=== PATIENT | male | born 1975 | race Caucasian/White ===

== ENCOUNTER 2019-12-28 11:33 | Emergency (ER) | payer OTHER, SELFPAY ==
--- NOTE | 2019-12-28 | MR_ITS ---
WS: [id number] MRI CERVICAL SPINE NONCONTRAST TECHNIQUE: Sagittal T1, T2 and STIR imaging. Axial T2, gradient, and fiesta imaging. CLINICAL INFORMATION: C1 FX COMPARISON: CT December 28, 2019 FINDINGS: Straightening of the normal cervical lordosis. Dens is normal in appearance. Normal C1-2 articulation . No evidence of cord contusion or epidural hematoma. No significant edema along the C1 ring fracture s better seen on the concurrent CT. Diffuse dorsal soft tissue and interspinous edema extending from the skull base into the cervical and upper thoracic spine more prominent at C3-T3 consistent with diffuse ligamentous injury. Edema withi n the right neck soft tissues deep to the sternocleidomastoid. C2-C3: Normal. C3-C4: Normal. C4-C5: Normal. C5-C6: Tiny shallow central protrusion. Slight effacement of ventral thecal sac. Mild left and no sig nificant right foraminal narrowing. Mild facet arthropathy. C6-C7: Normal. C7-T1: Mild disc bulging eccentric to the left with mild left and no significant right foraminal narr owing. Spinal canal is patent. Notified Bonifacio Ken DO at 12/28/2019 3:07 PM. MR/MR cervical spin wo con* [id number] IMPRESSION: 1. Diffuse dorsal subcutaneous and interspinous edema extending from the dorsa l skull base to the cervical spine and into the upper thoracic spine consistent with diffuse ligamentous injury. 2. No evidence of cord contusion or epidural hematoma. 3. Shallow central protrusion C5-C6 with slight effacement of ventral thecal s ac and mild left foraminal narrowing. 4. No significant edema at the C1-2 articulation or C1 ring. Recommend interva l follow-up to assess for evidence of healing at the suspected C1 ring fracture s seen on CT. 5. Edema within the right neck deep to the sternocleidomastoid. 6. Mild chronic left C7-T1 foraminal narrowing.
[2019-12-28 11:38] VITALS: BP 132/88; PULSE 62; RESP 20; O2SAT 100; BMI 25.1
--- NOTE | 2019-12-28 11:42 | CT_ITS ---
WS: [id number] CT FACIAL BONES HISTORY: fall facial trauma TECHNIQUE: Images obtained from the supraorbital location through the mandible. Soft tissue and bone windows are reviewed. Coronal and sagittal reformats have also been submitted. DLP: 805.[address] scans at [facility] use at least one of these dose optimization techniques: automat ed exposure control; mA and/or kV adjustment per patient size (includes targeted exams where dose is matched to clinical indication); or iterative reconstruction. COMPARISON: None available. The RIGHT central and lateral maxillary incisors have been dislocated partially from the tooth socket . There is displacement anteriorly with a small amount of adjacent air filling the socket. There is d isruption between the tooth and the socket. No additional maxillary fracture. Nasal bones and zygomat ic arches are intact. Mandible appears intact also. Extensive soft tissue edema over the maxilla. Nasal spine is midline. No fracture. No air-fluid level s or blood within the sinus cavities. Visualized upper cervical spine is normal. CT/CT facial bones wo con* [id number] IMPRESSION: 1. Displacement of the RIGHT central and lateral maxillary incisors with destr uction of the tooth socket. Adjacent soft tissue edema and bleeding around the maxilla. 2. No additional facial bone fracture.
--- NOTE | 2019-12-28 11:42 | CT_ITS ---
WS: [id number] CT CERVICAL SPINE HISTORY: fall neck pain TECHNIQUE: Contiguous 2.5 mm axial imaging performed through the entire cervical spine. Sagittal and coronal reformats also performed. All CT scans at [facility] use at least one of these do se optimization techniques: automated exposure control; mA and/or kV adjustment per patient size (inc ludes targeted exams where dose is matched to clinical indication); or iterative reconstruction. DLP: 635.82 mGy.cm COMPARISON: None available. Craniocervical junction is normal. Nondisplaced lucencies through the posterior ring of C1. Lucencies are bilateral within the posterior arch of C1. The anterior ring is intact. The odontoid process is intact. Facet joints are normally aligned without widening. Additional small osseous densities involving the occipital condyles suspicious for avulsion fractures from the recent trauma impaction. More suspicious on the RIGHT than the LEFT. C2-C3: Normal. C3-C4: Shallow central disc protrusion. C4-C5: Shallow central disc protrusion. C5-C6: Small central disc protrusion. C6-C7: Normal. C7-T1: Normal. Soft tissues are normal. Lung apices are clear. Notified Bonifacio Ken DO at 12/28/2019 12:[address]/CT cervical spin wo con* [id number] IMPRESSION: 1. Nondisplaced bilateral lucencies in the posterior arch of C1 consistent wit h fractures. Lucencies do not appear to be normal variants. 2. Small osseous fragments along the posterior occipital condyles. Suspicious for avulsion fractures from the recent trauma. 3. No additional fracture. 4. Consider MRI evaluation cervical spine.
--- NOTE | 2019-12-28 11:42 | CT_ITS ---
WS: [id number] CT HEAD NONCONTRAST HISTORY: fall w/ LOC TECHNIQUE: Contiguous axial imaging performed through the brain in 2.5 mm imaging. Bone and soft tiss ue windows. Sagittal and coronal reformats reviewed. All CT scans at [facility] use at ast one of these dose optimization techniques: automated exposure control; mA and/or kV adjustment pe r patient size (includes targeted exams where dose is matched to clinical indication); or iterative r econstruction. DLP: 872.18 mGy.cm COMPARISON: None available. No acute intracranial hemorrhage, midline shift or mass effect. No atrophy or prior infarcts or herniation. No acute blood products in the ambient cistern or intrap eduncular cistern. Ventricles: Normal size with no hydrocephalus. Paranasal sinuses: As visualized are clear. Mastoid air cells: Well pneumatized. Calvarium and scalp: Skull is intact with no soft tissue edema or swelling. CT/CT head wo con* [id number] IMPRESSION: Negative head CT.
--- NOTE | 2019-12-28 11:43 | XR_ITS ---
WS: [id number] PORTABLE CHEST HISTORY: dyspnea/cough COMPARISON: 06/26/2014 Lungs are clear and well expanded. No pleural effusion or pneumothorax. Cardiac size: Normal. Mediastinum/Aorta: Normal mediastinum. No mediastinal widening. No osseous abnormality seen. XR/XR chest 1V portable [id number] IMPRESSION: Unremarkable portable chest.
[2019-12-28] MEDS: ondansetron 2 mg/ML SDV 2 mL 4 MG IVP (11:46)
[2019-12-28] MEDS: ketorolac 30 mg/mL INJ IVP (11:48)
--- NOTE | 2019-12-28 11:49 | W.ED.FALL ---
HPI - Fall General: Chief Complaint: Fall Stated Complaint: ABRASIONS TO FACE Time Seen by Provider: 12/28/19 11:36 History of Present Illness: HPI Narrative: 44-year-old male presents the emergency room after a fall from a horse he has some facial abrasions and forehead abrasions he did land on his face he has neck pain. He came by privately owned vehicle and did not have a c-collar on. His symptoms evaluated the patient we called for a c-collar and placed him in a c-collar he cannot recall everything that happens. He thinks he may have been possibly kicked in the head by the horse he denies any other injuries he was ambulatory after the fall. complaint: fall Onset (ago): minute(s) Fall from: other (Thrown from a horse) Fall witnessed: yes, by family Place fall occurred: home Loss of consciousness: Yes Prolonged down time: unclear Symptoms prior to fall: none Context: other (Thrown from a horse.) Location of injury: head, face and neck Associated symptoms-after fall: Reports confusion, lightheadedness and neck pain; Denies abdominal pain or hematuria Review of Systems Const: Reports: body aches; Denies: fever, chills, fatigue, malaise or night sweats ENMT: Reports: mouth pain, swelling of lips/tongue and dental pain Card: Reports: lightheadedness Resp: Reports: shortness of breath; Denies: productive cough, non-productive cough or wheezing GI: Denies: abdominal pain, nausea, vomiting, vomiting blood, difficulty swallowing, cramping or blood in stool : Denies: flank pain, difficulty urinating, painful urination, urinary frequency, urinary urgency, urinary incontinence or blood in urine Musc: Reports: neck pain; Denies: back pain, extremity pain, extremity swelling, joint pain or joint swelling Skin/Breast: Reports: other (Abrasions on the face swelling of the lips); Denies: rash, itching or redness Neuro: Reports: confusion PFSH ED PFSH: Social History Smoking and tobacco status: never smoked Physical Exam Const: GENERAL APPEARANCE: cooperative ORIENTATION/CONSCIOUSNESS: Yes awake, Yes oriented to person, Yes oriented to place and Yes oriented to time HENMT: COMMON NORMALS: normocephalic, hearing grossly normal bilaterally, external ears normal, EAC's normal, TM's normal bilaterally, moist oral mucous membranes and oropharynx normal HEAD & SCALP: normocephalic NOSE: external nose abnormal nasal abrasion and nasal swelling and other (Small amount of dried blood in the nares no active bleeding) EXTERNAL EAR: Yes external ears normal EXTERNAL AUDITORY CANAL: EAC's normal TYMPANIC MEMBRANE: TM's normal bilaterally MOUTH: lip abnormal (Abrasion of the upper lip with laceration on the inner aspect of the upper lip does not appear to be gaping there is no active bleeding there is no laceration across the vermilion border) TEETH & GINGIVA: Yes abnormal tooth and associated gingiva (Displaced right frontal incisors -minimal exam of these other than observation no attempted any manipulation since arrangements were being made for immediate referral to dentist after the emergency room.) Eye: COMMON NORMALS: PERRL, EOMs intact bilaterally, conjunctivae normal and no scleral icterus CONJUNCTIVA: Yes conjunctivae normal PUPIL: Yes PERRL Neck/C-Spine: COMMON NORMALS: full ROM, no lymphadenopathy, supple and no JVD Lymph: LYMPHATIC: no lymphadenopathy noted and no lymphedema noted Resp: COMMON NORMALS: normal respiratory effort, no retractions, no use of accessory muscles and clear to auscultation bilaterally AUSCULTATION: clear to auscultation bilaterally Cardio: COMMON NORMALS: no JVD, regular rate, regular rhythm and no murmurs RATE: regular rate RHYTHM: regular rhythm GI: COMMON NORMALS: soft to palpation and no hepatosplenomegaly AUSCULTATION: Yes normoactive bowel sounds PALPATION: Yes soft, No tender, No guarding and Yes no hepatosplenomegaly Extremity: COMMON NORMALS: normal to inspection, normal capillary refill, no clubbing, cyanosis or edema, no calf tenderness and no pedal edema Neuro: SENSORIUM/ORIENTATION: Yes oriented to person, Yes oriented to place and Yes oriented to time Skin: NARRATIVE SKIN EXAM: Abrasions on the forehead across the nose and upper lip no full-thickness lacerations of the skin, there is a laceration on the inner aspect of the upper lip but it is not requiring sutures Course Vital Signs: Vital signs: Vital Signs Temperature 98.2 F 12/28/19 16:07 Pulse Rate 68 12/28/19 16:07 Respiratory Rate 18 12/28/19 16:07 Blood Pressure 121/78 12/28/19 16:07 Pulse Oximetry 96 12/28/19 16:07 MDM - Fall MDM Narrative: Medical decision making narrative: CT of the head shows a hematoma CT the facial bones shows displaced right lateral incisors. No other facial bone fractures CT of the neck shows a nondisplaced C1 fracture. Discussed with patient as well as with Dr. Ott we opted to do an MRI here at our facility. Dr. Ott reviewed the MRI and recommended a [place] or SOMI neck braces. The [place] was available to so me was ordered by prescription. Per the patient's request I had conferred with his local dentist. We transmitted appropriate images from his CT of the facial bones to his dentist. He asked that we send him directly to his office after leaving the emergency room patient left with the disc in hand. Dentist will care for the displaced teeth and make arrangements for referral to oral maxillary facial surgery as is appropriate. Patient is to follow-up with Dr. Ott on the cervical spine fracture. He is to remain in the c-collar until he sees Dr. Ott. Pain medications given as well as muscle relaxers and Ativan to assist in sleep. Lab Data: Labs: Lab Results 12/28/19 12/28/19 12/28/19 Range/Units 11:48 11:48 13:09 WBC 11.5 H (4.0-10.0) 10^3/ uL RBC 5.20 (4.1-5.3) 10^6/u L Hgb 15.5 (11.7-16.6) g/dL Hct 47.4 (42.0-52.0) % MCV 91.2 (80-94) fL MCH 29.8 (28.0-34.0) pg MCHC 32.7 (30.0-36.0) g/dL RDW 13.1 (12.1-15.1) % Plt Count 355 (130-400) 10^3/c mm MPV 10.0 (7.4-10.4) fL Neut % (Auto) 65.4 % Lymph % (Auto) 23.3 % [place] % (Auto) 7.5 % Eos % (Auto) 2.5 % Baso % (Auto) 0.3 % Neut # (Auto) 7.5 (1.8-7.7) 10^3/u L Lymph # (Auto) 2.7 (0.8-4.8) 10^3/u L [place] # (Auto) 0.9 (0.2-0.9) 10^3/u L Eos # (Auto) 0.3 (0.0-0.8) 10^3/u L Baso # (Auto) 0.0 (0.0-0.1) 10^3/u L Nucleated RBC % (a uto) 0 % Nucleated RBCs # 0.0 /100WBC Sodium 140 (136-145) mmol/L Potassium 3.9 (3.5-5.1) mmol/L Chloride 100 (98-107) mmol/L Carbon Dioxide 26 (22-29) mmol/L Anion Gap 17.9 (5-19) BUN 22 H (6-20) mg/dL Creatinine 1.2 (0.7-1.2) mg/dL GFR Calculation 65.8 L (90-130) mL/min Glucose 156 H (65-115) mg/dL Calculated Osmolal ity 290 (285-295) mOsm/k g Calcium 10.2 (8.5-10.5) mg/dL Total Bilirubin 0.5 (0.15-1.2) mg/dL AST 38 (0-40) U/L ALT 40 (0-41) U/L Alkaline Phosphata se 99 (40-130) IU/L Total Protein 7.7 (6.6-8.7) g/dL Albumin 4.6 (3.5-5.2) g/dL Globulin 3.1 (1.3-4.6) g/dL Urine Color Yellow (Yellow) Urine Appearance Clear (CLEAR) Urine pH 5 (5-7) Ur Specific Gravit y 1.020 (1.005-1.030) Urine Protein Neg (Negative) Urine Glucose (UA) Norm (Normal) Urine Ketones Negative (Negative) Urine Blood Neg (Negative) Urine Nitrate Negative (Negative) Urine Bilirubin Neg (NEGATIVE) Urine Urobilinogen Norm (Negative) mg/dL Ur Leukocyte Merna ase Negative (Negative) Discharge Plan Discharge Patient Disposition: Home, Self-Care Clinical Impression: Concussion with loss of consciousness, Dental trauma Condition: Stable Prescriptions: New hydrocodone-acetaminophen 5-325 mg tablet 1 tab PO Q6H PRN (Reason: pain) Qty: 25 RF: 0 Zofran 4 mg tablet 4 mg PO Q6H PRN (Reason: nausea and vomiting) Qty: 20 RF: 0 cyclobenzaprine 10 mg tablet 5 - 10 mg PO TID PRN (Reason: muscle spasm) Qty: 30 RF: 0 Ativan 1 mg tablet 1 mg PO DAILY PRN (Reason: sleep) Qty: 15 RF: 0 Discharge Orders: Discharge Order (Routine); Ordered 12/28/19 Ordered By: Bonifacio Ken Referrals: James Dasilva, [Family Provider] - Discharge Diet: Full LIquid Discharge Activity: Limit activity as instructed Activity Restrictions/Additional Instructions: Case management will call to make an appointment with Dr. Ott for follow-up on the cervical spine fracture. Antibiotics and pain medications as prescribed. Dr. Luciano MERINO will see you at his office immediately after leaving the emergency room and he will make arrangements for the dental injuries. Discharge Date/Time: 12/28/19 16:11 Coding Level of Care Code ED Director Payment for [employer] Exam Comprehensive
[2019-12-28 11:52] LABS: Basophils % 0.3 %; Eosinophils # 0.3 10^3/uL (0.0-0.8); Eosinophils % 2.5 %; Hematocrit 47.4 % (42.0-52.0); Hemoglobin 15.5 g/dL (11.7-16.6); Lymphocytes # 2.7 10^3/uL (0.8-4.8); Lymphocytes % 23.3 %; Mean Corpuscular HGB Conc 32.7 g/dL (30.0-36.0); Mean Corpuscular Hemoglobin 29.8 pg (28.0-34.0); Mean Corpuscular Volume 91.2 fL (80-94); Monocytes # 0.9 10^3/uL (0.2-0.9); Monocytes % 7.5 %; Neutrophils # 7.5 10^3/uL (1.8-7.7); Neutrophils % 65.4 %; Nucleated Red Blood Cells % 0 %; Platelet Count 355 10^3/cmm (130-400); Red Cell Distribution Width 13.1 % (12.1-15.1); White Blood Count 11.5 10^3/uL (4.0-10.0)
--- NOTE | 2019-12-28 12:00 | PC.NURSE ---
Pt reports being bucked off of a horse. Woke up on the ground, attempting to get up. Has facial abrasions, dried blood around mouth and nasal region. Pt is alert and oriented x4, appears in pain. Pain medication was utilized on his arrival. Resp even and unlabored, lungs cta, denies dyspnea, abdomen is soft non-tender, bsx4 in all quadrants. Will continue to monitor closely. Call light is within reach. Bed is in lowest position.
[2019-12-28 12:07] LABS: Alanine Aminotransferase 40 U/L (0-41); Albumin Level 4.6 g/dL (3.5-5.2); Alkaline Phosphatase 99 IU/L (40-130); Anion Gap 17.9 (5-19); Aspartate Amino Transferase 38 U/L (0-40); Blood Urea Nitrogen 22 mg/dL (6-20); Calcium 10.2 mg/dL (8.5-10.5); Carbon Dioxide 26 mmol/L (22-29); Chloride 100 mmol/L (98-107); Creatinine Clr Calc Pharmacy 86.4876; Globulin 3.1 g/dL (1.3-4.6); Glomerular Filtration Rate 65.8 mL/min (90-130); Glucose 156 mg/dL (65-115); Osmolality Calculated 290 mOsm/kg (285-295); Potassium 3.9 mmol/L (3.5-5.1); Sodium 140 mmol/L (136-145); Total Bilirubin 0.5 mg/dL (0.15-1.2); Total Protein 7.7 g/dL (6.6-8.7)
--- NOTE | 2019-12-28 12:27 | PC.NURSE ---
Attempted to get pt to obtain a urine sample. PT states currently unable to go.
[2019-12-28 13:12] VITALS: BP 132/79; PULSE 72; RESP 18; O2SAT 98
[2019-12-28 13:17] LABS: Add Urine Microscopic? NO
[2019-12-28 13:20] LABS: Bilirubin Urine Neg (NEGATIVE); Blood Urine Neg (Negative); Glucose Urine UA Norm (Normal); Ketones Urine Negative (Negative); Leukocyte Esterase Urine Negative (Negative); Nitrate Urine Negative (Negative); Protein Urine Neg (Negative); Urine Appearance Clear (CLEAR); Urine Color Yellow (Yellow); Urobilinogen Urine Norm (Negative); pH Urine 5 (5-7)
[2019-12-28 16:07] VITALS: BP 121/78; PULSE 68; RESP 18; TEMP 36.8; O2SAT 96
--- NOTE | 2019-12-29 10:22 | DCPLANNER ---
wholesale manager had message to schedule a follow up appointment for patient with Dr. Ott. wholesale manager called the office of Dr. Ott, spoke with Mercedes, gave clinic patients information. wholesale manager was told that patients information would be printed and given to Rojas for review. Clinic will call director of casework and patient with appointment information.
--- NOTE | 2019-12-30 12:50 | DCPLANNER ---
Patient has a follow up appointment scheduled for Monday, January 13, 2020 at 1:[address] Ott. Clinic will call patient with appointment information.
--- NOTE | 2020-01-24 13:48 | DCPLANNER ---
Patient attended appointment scheduled with Dr. Ott.
== END 2019-12-28 16:11 | disposition home or self-care (01) ==
PROVIDERS: Emergency Provider Family Medicine; Family Provider Family Medicine
DX: S06.0X9A Concussion with loss of consciousness of unspecified duration, initial encounter (principal); S00.502A Unspecified superficial injury of oral cavity, initial encounter; S12.000A Unspecified displaced fracture of first cervical vertebra, initial encounter for closed fracture; V80.010A Animal-rider injured by fall from or being thrown from horse in noncollision accident, initial encounter; M26.30 Unspecified anomaly of tooth position of fully erupted tooth or teeth
CPT/HCPCS: 12345; 36415; 70450; 70486; 71045; 72125; 72141; 80053; 81003; 85025; 96374; 96375; 99282; 99284; A9270; J1885; J2405; L0174

== ENCOUNTER 2020-01-11 10:05 | Outpatient (CLI) | payer OTHER, SELFPAY ==
--- NOTE | 2020-01-11 10:30 | CT_ITS ---
WS: [id number] CT CERVICAL SPINE TECHNIQUE: Noncontrast CT of the cervical spine with coronal and sagittal reformatted images. CLINICAL INFORMATION: cervical fracture COMPARISON: MRI December 28, [address] December 28, 2019 DLP: 1367.[address] scans at [facility] use at least one of these dose optimization techniques: automat ed exposure control; mA and/or kV adjustment per patient size (includes targeted exams where dose is matched to clinical indication); or iterative reconstruction. FINDINGS: Normal cervical alignment. Dens is normal in appearance. Previously described nondisplaced C1 ring fr actures are nondisplaced and appear unchanged with no evidence of interval healing or callus formatio n. Recommend continued surveillance to assess for healing. Congenital incomplete posterior C1 ring. P reviously described possible tiny avulsions involving the occipital condyles bilaterally are unchange d. Mastoid air cells are well aerated. No other visualized fractures. Diffuse dorsal subcutaneous and in terspinous edema is again seen today. No significant interspinous widening or spinous process avulsio n. No other changes from previous. C2-C3: Normal. C3-C4: Normal. C4-C5: Normal. C5-C6: Tiny shallow central protrusion. Slight effacement of ventral thecal sac. Mild left and no sig nificant right foraminal narrowing. Mild facet arthropathy. C6-C7: Normal. C7-T1: Mild disc bulging eccentric to the left with mild left and no significant right foraminal narr owing. Spinal canal is patent. CT/CT cervical spin wo con* [id number] IMPRESSION: 1. Again seen are the bilateral C1 ring fractures without evidence of interval healing or callus formation. Recommend continued surveillance. No displacement . 2. Stable tiny suspected osseous avulsions involving the occipital condyles. N o evidence of healing. 3. Diffuse subcutaneous edema dorsal paraspinal soft tissues with interspinous edema is again seen and improved today. No significant interspinous widening o r spinous process avulsion. 4. No other changes from previous.
== END 2020-01-11 10:06 | disposition home or self-care (01) ==
LOC: RADWPI 10:09
PROVIDERS: Family Provider Family Medicine; PCP Family Medicine; Visit Provider Specialist
DX: S12.090A Other displaced fracture of first cervical vertebra, initial encounter for closed fracture; X58.XXXA Exposure to other specified factors, initial encounter
CPT/HCPCS: 72125

== ENCOUNTER 2020-02-09 08:03 | Outpatient (CLI) | payer OTHER, SELFPAY ==
--- NOTE | 2020-02-09 08:00 | CT_ITS ---
WS: [id number] CT CERVICAL SPINE TECHNIQUE: Noncontrast CT of the cervical spine with coronal and sagittal reformatted images. CLINICAL INFORMATION: cervical fracture COMPARISON: CT January 11, 2020, MRI December 28, 2019 CT December 28, 2019 DLP: 1332.[address] scans at [facility] use at least one of these dose optimization techniques: automat ed exposure control; mA and/or kV adjustment per patient size (includes targeted exams where dose is matched to clinical indication); or iterative reconstruction. FINDINGS: Previously described nondisplaced symmetric C1 ring fractures are unchanged in appearance with no ivy dence of healing. No evidence of callus formation. Alignment is unchanged. Previously described suspe cted tiny avulsions at the occipital condyles are also unchanged in appearance without evidence of ca llus formation. Congenital incomplete posterior C1 ring. Additional possible tiny nondisplaced fracture versus nutrient canal along the right transverse proce ss at C1 adjacent to the transverse foramen. This appeared to represent a prominent nutrient canal in the prior imaging but has become progressively more apparent over the prior examinations suspicious for bony resorption along a nondisplaced fracture. No callus formation. No significant edema in this area on the prior MRI. Otherwise no significant changes from previous. C2-C3: Normal. C3-C4: Normal. C4-C5: Normal. C5-C6: Tiny shallow central protrusion. Slight effacement of ventral thecal sac. Mild left and no sig nificant right foraminal narrowing. Mild facet arthropathy. C6-C7: Normal. C7-T1: Mild disc bulging eccentric to the left with mild left and no significant right foraminal narr owing. Spinal canal is patent. Mastoid air cells are well aerated. Interspinous dorsal soft tissue edema has improved. CT/CT cervical spin wo con* [id number] IMPRESSION: 1. Again seen are the bilateral C1 ring fractures without evidence of interval healing or callus formation. No displacement. 2. Stable tiny suspected osseous avulsions involving the occipital condyles are unchanged. No evidence of healing. 3. Tiny nondisplaced fracture versus nutrient foramen more prominent today invo lving the right C1 transverse process and transverse foramen. No callus formati on. 4. Previously described interspinous edema has improved.
== END 2020-02-09 08:04 | disposition home or self-care (01) ==
LOC: RADWPI 08:06
PROVIDERS: Family Provider Family Medicine; PCP Family Medicine; Visit Provider Specialist
DX: S12.091A Other nondisplaced fracture of first cervical vertebra, initial encounter for closed fracture (principal); X58.XXXA Exposure to other specified factors, initial encounter
CPT/HCPCS: 72125

== ENCOUNTER 2020-03-08 13:17 | Outpatient (CLI) | payer OTHER, SELFPAY ==
--- NOTE | 2020-03-08 13:30 | CT_ITS ---
WS: [id number] CT CERVICAL SPINE TECHNIQUE: Noncontrast CT of the cervical spine with coronal and sagittal reformatted images. CLINICAL INFORMATION: cervical fracture COMPARISON: CT February 09, 2020 and 01/11/2020 and 12/28/2019 DLP: 1796.[address] scans at [facility] use at least one of these dose optimization techniques: automat ed exposure control; mA and/or kV adjustment per patient size (includes targeted exams where dose is matched to clinical indication); or iterative reconstruction. FINDINGS: Previously described nondisplaced symmetric C1 ring fractures are unchanged in appearance. No signifi cant callus formation. Alignment is unchanged. Previously described suspected tiny avulsions at the o ccipital condyles are also unchanged in appearance without evidence of callus formation. Congenital incomplete posterior C1 ring. Additional possible tiny nondisplaced fracture along the rig ht transverse process at C1 adjacent to the transverse foramen is stable. No significant interval hea ling. Otherwise no significant changes from previous. IMPRESSION: 1. Again seen are the bilateral C1 ring fractures without evidence of interval callus formation. No displacement. 2. Stable tiny suspected osseous avulsions involving the occipital condyles are unchanged. No signif icant healing. 3. Suspected tiny nondisplaced fracture involving the right C1 transverse process and transverse for amen is unchanged.
== END 2020-03-08 13:18 | disposition home or self-care (01) ==
LOC: RADWPI 13:19
PROVIDERS: Family Provider Family Medicine; PCP Family Medicine; Visit Provider Specialist
DX: S12.001A Unspecified nondisplaced fracture of first cervical vertebra, initial encounter for closed fracture (principal); X58.XXXA Exposure to other specified factors, initial encounter
CPT/HCPCS: 72125